=== PATIENT | female | born 1965 | race Caucasian/White ===

== ENCOUNTER 2018-03-15 13:53 | Emergency (ER) | payer OTHER ==
[~2018-03-15] VITALS: Ht 157.5 cm; Wt 56.7 kg
[~2018-03-15 13:53] MED LIST: CIPRO500 MG PO; KETO10TA2 PO; ORPH100T PO; PYRIDIUM100 MG PO; WELLBUTRIN XL300 MG
[2018-03-15] MEDS ORDERED: PERCOCET 5-3251 EACH PO (17:39)
[2018-03-15] MEDS ORDERED: IBUPROFEN800 MG PO (17:42)
== END 2018-03-15 17:57 | disposition home or self-care (01) ==
LOC: ER 13:53
DX: M75.51 Bursitis of right shoulder (principal)